=== PATIENT | male | born 1980 | race Caucasian/White ===

== ENCOUNTER 2024-11-15 11:52 | Emergency (ER) | payer OTHER, MEDICAID ==
[2024-11-15] MEDS: Ketorolac 15 MG/ML SDV IVPUSH ONE (13:06)
== END 2024-11-15 14:20 | disposition home or self-care (01) ==
LOC: JP.ED 11:52
DX: S92.341A Displaced fracture of fourth metatarsal bone, right foot, initial encounter for closed fracture (principal); S92.351A Displaced fracture of fifth metatarsal bone, right foot, initial encounter for closed fracture; Z91.040 Latex allergy status; Z79.899 Other long term (current) drug therapy; Z91.041 Radiographic dye allergy status; Z88.5 Allergy status to narcotic agent; Z88.8 Allergy status to other drugs, medicaments and biological substances; V28.09XA Other motorcycle driver injured in noncollision transport accident in nontraffic accident, initial encounter
CPT/HCPCS: 73630; 96374; 99283; 99284; J1885